=== PATIENT | male | born 1940 | race Caucasian/White ===

== ENCOUNTER 2016-09-15 09:42 | Outpatient (CLI) | payer MEDICARE, BC ==
[2015-11-12 17:28] VITALS: O2SAT 93
== END 2016-09-15 09:43 | disposition home or self-care (01) | DRG 554 ==
LOC: CONVCARE 09:42
PROVIDERS: ATTEND Orthopaedic Surgery
DX: M18.11 Unilateral primary osteoarthritis of first carpometacarpal joint, right hand (principal); M47.897 Other spondylosis, lumbosacral region
CPT/HCPCS: 72120; 73140

== ENCOUNTER 2016-09-20 12:26 | Day surgery (SDC) | payer MEDICARE, BC ==
[2016-09-20 12:51] VITALS: RESP 16
[2016-09-20] MEDS ORDERED: TRIAMCINOLONE ACETONIDE 40 MG/ML SUS ONE (13:00)
[2016-09-20] MEDS ORDERED: BUPIVACAINE HCL 0.5% MPF 10 ML SOL ONE (13:01)
[2016-09-20 13:52] VITALS: PULSE 72; TEMP 99.7; O2SAT 95
[2016-09-20 13:57] VITALS: BP 140/90
== END 2016-09-20 14:06 | disposition home or self-care (01) | DRG 552 ==
LOC: SURG 12:26
PROVIDERS: ATTEND Nurse Anesthetist, Certified Registered
DX: M48.06 Spinal stenosis, lumbar region (principal); M12.9 Arthropathy, unspecified; M47.816 Spondylosis without myelopathy or radiculopathy, lumbar region
CPT/HCPCS: J3300

== ENCOUNTER 2016-11-28 12:59 | Day surgery (SDC) | payer MEDICARE, BC ==
[2016-11-28] MEDS ORDERED: BUPIVACAINE HCL 0.5% MPF 10 ML SOL ONE (13:17)
[2016-11-28] MEDS ORDERED: TRIAMCINOLONE ACETONIDE 40 MG/ML SUS ONE (13:17)
[2016-11-28 14:04] VITALS: BP 132/80; PULSE 81; RESP 20; TEMP 97.4; O2SAT 95
== END 2016-11-28 14:20 | disposition home or self-care (01) | DRG 554 ==
LOC: SURG 12:59
PROVIDERS: ATTEND Nurse Anesthetist, Certified Registered
DX: M12.9 Arthropathy, unspecified (principal)
CPT/HCPCS: G0260; J3300

== ENCOUNTER 2016-12-28 15:00 | Outpatient (CLI) | payer MEDICARE, BC ==
[2016-11-28 14:04] VITALS: O2SAT 95
== END 2016-12-28 15:01 | disposition home or self-care (01) | DRG 554 ==
LOC: CONVCARE 15:00
PROVIDERS: ATTEND Orthopaedic Surgery
DX: M16.11 Unilateral primary osteoarthritis, right hip (principal); Z96.642 Presence of left artificial hip joint; Z47.1 Aftercare following joint replacement surgery
CPT/HCPCS: 72170; 73501

== ENCOUNTER 2017-01-11 12:51 | Outpatient (CLI) | payer MEDICARE, BC ==
[2016-11-28 14:04] VITALS: O2SAT 95
== END 2017-01-11 12:52 | disposition home or self-care (01) | DRG 556 ==
LOC: CONVCARE 12:51
PROVIDERS: ATTEND Orthopaedic Surgery
DX: M25.551 Pain in right hip (principal)